=== PATIENT | male | born 1955 | race Caucasian/White ===

== ENCOUNTER 2016-10-09 20:02 | Inpatient (IN) | payer MEDICARE ==
--- NOTE | ~2016-10-09 | CO ---
Unit #: [id number] #: [id number] Patient: MAYNOR CAM [id number] [address] [place], [place] [address] [id number] I MR#: [id number] NAME: MAYNOR CAM ROOM: 341 Age: 60 Sex: M Admission Date: 10/10/2016 : 1955 Attending Physician: Carlyle Bull M.D. Primary Care Physician: No Primary Care Physician Consultation Date: 10/10/2016 CONSULTATION REPORT REASON FOR CONSULT Shortness of breath as well as chest tightness. HISTORY OF PRESENT ILLNESS The patient is a 60-year-old white male who came up from [place] approximately 12 months ago to stay with his son. However, due to some financial issues, the patient is now homeless. The patient apparently has a medical history of some chronic back pain, some sort of an eye condition as well as allergies. The patient has a questionable history of endocarditis, records are unavailable, hepatitis C and cirrhosis, as well as tobacco abuse and alcohol abuse. The patient presents to the [facility] ED on 10/09/16 at roughly 6 p.m. with complaints of chest tightness as well as a cough that have been noticeable for the last week as well as shortness of breath for the last one to two days. However, when he lays down on the bed, he has been short of breath for some time. The patient does have a cough that is nonproductive. The patient denies any kind of fevers but states that he has been told that he had a fever. He is homeless and apparently has been staying in abandoned homes and garages. The patient denies any kind of nausea, vomiting, diarrhea. He does complain of chest tightness to the middle of his chest with no radiation. The patient states that he had a cardiac cath approximately seven to eight years ago in [place] but cannot remember the name of the physician that performed it or what facility it was done at but he was reportedly told that it was normal. EKG here showed sinus rhythm with multifocal PVCs with some nonspecific T wave abnormalities. We were asked to evaluate the patient and further workup the chest pain. PAST MEDICAL HISTORY 1. Chronic back pain. 2. Some sort of an eye condition. 3. Allergies. 4. Questionable history of endocarditis. 5. Hepatitis C. 6. Cirrhosis. PAST SURGICAL HISTORY 1. Nose surgery. 2. Back surgery. 3. Umbilical hernia repair. 4. Tonsillectomy. 5. Jaw surgery. SOCIAL HISTORY The patient is a one to two 40 ounce beer drinker daily. He also smokes a Unit #: [id number] #: [id number] Patient: MAYNOR CAM half a pack per day for the last five to six months. The patient also reports some history of drinking whiskey. It is very unclear as to how much and exactly what type of alcohol the patient drinks as he is very wishy-washy on his story and he does not give clear cut answers to how much he drinks and what source of alcohol. The patient states that he does ride a bike routinely and the last time he rode his bike was last week. He rode about a mile and a half and he was not short of breath. However, now, he states if he were to get on his bike and ride, he would get short of breath and have to stop frequently for breaks. FAMILY HISTORY Dad had brain cancer. Mom-no known heart problems. No other family history of heart disease known. ALLERGIES No known allergies. HOME MEDICATION The patient states that he does take medications for his pain, for his eyes and his allergies. However, he has no medication list and is not quite sure where he last got his meds filled but has not had any for the last few months. REVIEW OF SYSTEMS See HPI. PHYSICAL EXAMINATION GENERAL APPEARANCE: This is a 60-year-old white male who is alert and oriented x3 in no apparent distress. VITAL SIGNS: Blood pressure 128/91. Temp 97.2. Pulse 102. Respirations 22. HEENT: Pupils are equal, round and reactive. Oral mucosa is moist. NECK: No JVD. No thyromegaly. No lymphadenopathy. No carotid bruits. HEART: S1, S2. No S3, S4. No clicks. No rubs. No murmurs. LUNGS: Rhonchi throughout. ABDOMEN: Soft. Bowel sounds positive, nontender, nondistended. EXTREMITIES: No swelling. NEUROLOGIC: No neuro deficits noted. DIAGNOSTIC STUDIES LABORATORY: Flu is negative for A and B. Troponin less than 0.05, less than 0.05 and 0.03. BNP 1,131. Sodium 141, potassium 4, chloride 105, COPD 26, BUN 15, creatinine 0.8, glucose 163. White count 4.6, hemoglobin 14, hematocrit 41.9, platelets 241. IMAGING: Chest x-ray showed pulmonary edema as well as possible bilateral pleural effusions. IMPRESSION 1. Acute heart failure. 2. Alcohol abuse. 3. Frequent PVCs. 4. Questionable history of endocarditis. 5. Hepatitis C. 6. Cirrhosis. PLAN We will plan to diurese the patient with IV diuretics. We will obtain 2D Unit #: [id number] #: [id number] Patient: MAYNOR CAM echo. The patient will need ischemic heart disease workup depending on echo results with either a stress test versus a cardiac cath. We will start the patient on lisinopril for blood pressure management as well as Coreg twice a day. We will check TSH, lipid profile and troponin in the morning. We will also ask the child welfare social worker to see to help the patient with medication assistance as well as senior care. The patient does state that he plans to return to [place] once he gets his monthly check and once out of the hospital. Further recommendations and workup pending results of the echo as well as other lab results. The patient has verbalized the plan and is agreeable to the plan of care. Dictated by... FRANCOIS Bright M.D. LA/bd TD: 10/11/2016 10:34 JOB #: [id number] CONSULTATION REPORT X X CONSULTATION REPORT
--- NOTE | ~2016-10-09 | CR72 ---
[facility] A Service of [facility] & [facility] RADIOLOGY TEXT RESULTS PATIENT: MAYNOR CAM LOCATION: [facility] 341-01 : [birth year] UNIT #: [id number] AGE: [address]: Carlyle Bull MD SEX: M ORDER DR: [id number] [facility] [address] [facility]. [place], [place] [address] [id number] I MR#: [id number] Acc #: [id number] NAME: MAYNOR CAM : 1955 SEX: M STUDY DATE/TIME: 10/09/2016 19:07 UNIT: [address] ROOM: [facility] STUDY DESCRIPTION: CR Chest Single View Portable Attending Physician: Carlyle Bull M.D. Ordering Physician: Alessia Justin M.D. Primary Care Physician: Primary Care Physician No MEDICAL IMAGING REPORT This report is preliminary unless electronic signature is present EXAM Portable chest HISTORY Cough, shortness of air chest pain x1 week. COMPARISON 01/03/2016 FINDINGS A portable view of the chest demonstrates cardiomegaly with diffuse haziness over both lungs with peribronchial cuffing and interstitial prominence compatible with underlying CHF with interstitial and alveolar edema. Probable small effusions. Mediastinum, bony thorax unremarkable. Again findings most concerning for developing CHF. Dictated by... Steve Kendall M.D. THIS IS AN ELECTRONICALLY VERIFIED REPORT Steve Kendall M.D. at 10/10/2016 5:04 PM Kesha TD: 10/10/2016 07:41 JOB #: [id number] MEDICAL IMAGING REPORT COPY
--- NOTE | ~2016-10-09 | EKG ---
PATIENT: MAYNOR CAM UNIT #: [id number] Ventricular Rate: 95 BPM Atrial Rate: 95 BPM P-R Interval: 164 ms QRS Duration: 104 ms Q-T Interval: 384 ms QTC Calculation(Bezet): 482 ms P [place]: 64 degrees Calculated R [place]: 37 degrees Calculated T [place]: 116 degrees Diagnosis Line: Sinus rhythm with occasional Premature ventricular Diagnosis Line: complexes Diagnosis Line: Possible Left atrial enlargement Diagnosis Line: Nonspecific T wave abnormality Diagnosis Line: Abnormal ECG Diagnosis Line: Diagnosis Line: Confirmed by BARNEY LEAL MD ([id number]) on 10/10/2016 Diagnosis Line: 7:06:35 AM INTERPRETING MD: MEL HOLCOMB
--- NOTE | ~2016-10-09 | EKG ---
PATIENT: MAYNOR CAM UNIT #: [id number] Ventricular Rate: 90 BPM Atrial Rate: 90 BPM P-R Interval: 170 ms QRS Duration: 98 ms Q-T Interval: 424 ms QTC Calculation(Bezet): 518 ms P [place]: 76 degrees Calculated R [place]: 96 degrees Calculated T [place]: 89 degrees Diagnosis Line: Normal sinus rhythm Diagnosis Line: Rightward axis Diagnosis Line: Nonspecific T wave abnormality Diagnosis Line: Prolonged QT Diagnosis Line: Abnormal ECG Diagnosis Line: When compared with ECG of 11-OCT-2016 07:04, Diagnosis Line: Premature ventricular complexes are no longer Diagnosis Line: Present Diagnosis Line: Questionable change in QRS axis Diagnosis Line: Nonspecific T wave abnormality no longer evident Diagnosis Line: in Inferior leads Diagnosis Line: Confirmed by BARNEY LEAL MD ([id number]) on 10/12/2016 Diagnosis Line: 7:38:54 PM INTERPRETING MD: MEL HOLCOMB
--- NOTE | ~2016-10-09 | HP ---
Unit #: [id number] #: [id number] Patient: MAYNOR CAM [id number] [address] [address] [id number] I MR#: [id number] NAME: MAYNOR CAM ROOM: 341 Age: 60 Sex: M Admission Date: 10/10/2016 : 1955 Attending Physician: Diana Danielle M.D. Primary Care Physician: No Primary Care Physician HISTORY AND PHYSICAL CHIEF COMPLAINT Chest pain and chest tightness. HISTORY OF PRESENT ILLNESS The patient is a 60-year-old male with a history of alcohol abuse, drinks one to two 40 ounce bottles of alcohol every night and presented to the emergency room complaining of the chest tightness and cough for one week. The patient also complains that the patient is not able to lie down flat on the bed, associated with a nonproductive cough. The patient was found to have a new onset CHF with BNP of 1131 and the chest x-ray shows bilateral effusion concerning for the CHF. The patient denies any fever, chills, nausea, vomiting. The patient continues to smoke 1/2 pack of cigarettes daily and denies any abdominal pain or palpitations. PAST MEDICAL HISTORY None. PAST SURGICAL HISTORY Left eye surgery. HOME MEDICATIONS Oxycodone. ALLERGIES Allergic to Toradol. SOCIAL HISTORY He smokes a half a pack of cigarettes daily and drinks one to two 40 ounce bottles or alcohol every night and denies any illicit drug abuse. FAMILY HISTORY Positive for coronary artery disease. REVIEW OF SYMPTOMS Fourteen point review of symptoms performed and only pertinent positives are as described above. The remaining are negative. PHYSICAL EXAMINATION GENERAL: The patient is lying on the bed, not in acute distress. VITALS: Temperature 98.3, pulse 99, respiratory rate 16, blood pressure 126/95, satting 96% at room air. HEENT: Head atraumatic, normocephalic. Pupils equal, round and reactive to light and accommodation. Extraocular movements are intact. NECK: Supple. Unit #: [id number] #: [id number] Patient: MAYNOR CAM LUNGS: Decreased air entry at the bases. Bilateral upper rales. HEART: Regular rate and rhythm. Tachycardic. ABDOMEN: Soft. Positive bowel sounds. EXTREMITIES: No cyanosis and no clubbing. NEUROLOGIC: Alert, awake and oriented. No gross focal motor deficit. DIAGNOSTIC STUDIES LABORATORY DATA: WBC 8.2, hemoglobin 14, hematocrit 41.8, platelet 248, neutrophils 84.2. Troponin less than 0.05. INR is 1.1. Glucose 115, BUN 15, creatinine 0.7, sodium 136, potassium 3.5, bicarb 24, calcium 8, total bili 0.6, AST 64, ALT 87, alk phos 97, BNP is 1131, alcohol level is less than 5. CARDIOLOGY STUDIES: EKG shows sinus rhythm with questionable PVC, possible left atrial enlargement, and nonspecific T wave abnormalities in the lateral leads, mainly in V3, V4, V5 and V6. ASSESSMENT 1. New onset CHF probably from alcohol. 2. Alcohol abuse. 3. History of hep C. PLAN Plan to admit the patient to observation with telemetry. Continue with the diuretic with Lasix 40 mg IV daily. Check the echocardiogram and rule out ischemia with serial troponins. Cardiology consult for the CHF management and repeat the labs again in the morning and further recommendations will follow. Dictated by Roberto Lobato TD: 10/10/2016 06:04 JOB #: [id number] HISTORY AND PHYSICAL X X HISTORY AND PHYSICAL
--- NOTE | ~2016-10-09 | DS ---
Unit #: [id number] #: [id number] Patient: MAYNOR CAM [id number] [facility] [address] [facility]. [place], [place] [address] [id number] I MR#: [id number] NAME: MAYNOR CAM ROOM: 341 Age: 60 Sex: M Admission Date: 10/10/2016 : 1955 Discharge Date: 10/13/2016 Attending Physician: Carlyle Bull M.D. Primary Care Physician: No Primary Care Physician DISCHARGE SUMMARY DISCHARGE DIAGNOSES 1. Severe alcoholic cardiomyopathy: Heart cath performed reveals ejection fraction of 15%. 2. Acute systolic heart failure: Will be discharged on Lasix. Again, noted ejection fraction is 15%. 3. Alcoholic cirrhosis, stable at this time. 4. Polysubstance abuse: Specifically, has a longstanding history with intravenous meth. Stressed cessation. 5. 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 6. Glaucoma. AGRICULTURAL SYSTEMS SPECIALIST [facility] - Dr. De La Rosa and Dr. Douglas. PROCEDURE The patient had left heart cath done by Dr. Douglas on 10/12/16. The patient had 1) left ventricular size is markedly enlarged with severe global hypokinesis. The left ventricular ejection fraction is about 10% to 15%. 2) Coronary artery reveals no hemodynamically significant fixed stenosis. 3) Left ventricular end-diastolic pressure was 21 mmHg. IMAGING Imaging consists of a chest x-ray on 10/09/16. Findings - a portable view of the chest demonstrates cardiomegaly with diffuse haziness over both lungs with peribronchial cuffing and interstitial prominence compatible with underlying CHF with interstitial and alveolar edema. Probable small effusions. Mediastinum, bony thorax unremarkable. Again findings most concerning for developing CHF. LABORATORY On the day of discharge, the patient's labs: BMP were all unremarkable. The patient's liver function - AST was 90, ALT was 109. Patient's fasting lipid panel reveals total cholesterol is 122, triglyceride 47, LDL 77, HDL 36. CBC were all unremarkable. Noted hemoglobin of 15.5, hematocrit 46.6. HOSPITAL COURSE The patient is a pleasant 60-year-old male with a past medical history of alcoholism. Drinks about one to two 40 ounce bottles of alcohol every night. Presented to [facility] due to chest tightness and cough for about one week. The patient complains that he is Unit #: [id number] #: [id number] Patient: MAYNOR CAM not able to lie down flat on the bed associated with nonproductive cough. The patient was found to have new onset CHF with BNP of 1131. Chest x-ray significant for bilateral pleural effusion concerning for CHF. The patient had denied any fevers, chills, nausea, vomiting. The patient continues to smoke a half pack of cigarettes daily and denies any abdominal pain or palpitations. Later on, patient admits that he does have difficulty with battling IV substance abuse, specifically methamphetamine. The patient was admitted and diuresed with IV Lasix. An echocardiogram was done and cardiology was consulted with the patient's transthoracic 2D echocardiogram revealing severe systolic reduction with LVEF of 10% to 15%. With his known longstanding history of polysubstance abuse, we could not rule out the patient had no coronary stenosis. Therefore, left heart cath was scheduled and details were noted above. The patient does have markedly large and severe global hypokinesis of the left ventricle with ejection fraction of 10% to 15% but coronary arteries reveal no hemodynamically significant stenosis. At this time, patient was encouraged to stop smoking, stop using alcohol, stop any IV drug usage as well. The patient will be started on lisinopril as well as Coreg as a beta argenis and Lasix as well as Aldactone. Both cardiology and myself have stress to patient to continue with a fluid and salt restriction diet with a fluid restriction of 1800 mL daily. DISCHARGE CONDITION Stable. The patient will be returning back home to [place] where both cardiology and myself have stressed that patient will need to establish care with a machine coil assembler there. All reports, procedures and notes can be requested from his machine coil assembler and primary care physician there in [place]. The patient voiced understanding. I actually have told this to patient and his daughter and his daughter's girlfriend. DISCHARGE DIET Heart healthy diet with two grams of sodium daily as well as 1800 mL fluid restriction. DISCHARGE ACTIVITY Refrain from alcohol, IV and tobacco usage but to ambulate every day as was prior to hospitalization as tolerated. DISCHARGE MEDICATIONS Include: 1. Coreg 6.25 mg orally twice daily. 2. Furosemide 40 mg orally daily with an additional 40 mg dose in the afternoon for increased shortness of breath and/or swelling. 3. Lisinopril 10 mg orally daily. 4. Multivitamin gwuo-ano-knytitl, one tablet orally daily. 5. Aspirin 81 mg orally daily. 6. Spironolactone 12.5 mg orally daily. 7. Folic acid 1 mg orally daily. 8. Thiamine 100 mg orally daily. 9. The patient had requested and I have given a prescription for Combigan eyedrops that he had used previously for Glaucoma, one drop into affected eye twice daily. Dictated by... Mercedes Sexton PA-C for Carlyle Bull M.D. Unit #: [id number] #: [id number] Patient: SUZETTE CAMSAMUEL GUERRA/lolita TD: 10/14/2016 09:13 JOB #: [id number] DISCHARGE SUMMARY X X DISCHARGE SUMMARY
--- NOTE | ~2016-10-09 | EKG ---
PATIENT: MAYNOR CAM UNIT #: [id number] Ventricular Rate: 88 BPM Atrial Rate: 88 BPM P-R Interval: 164 ms QRS Duration: 104 ms Q-T Interval: 396 ms QTC Calculation(Bezet): 479 ms P [place]: 75 degrees Calculated R [place]: 35 degrees Calculated T [place]: 118 degrees Diagnosis Line: Sinus rhythm with occasional Premature ventricular Diagnosis Line: complexes Diagnosis Line: Possible Left atrial enlargement Diagnosis Line: Nonspecific T wave abnormality Diagnosis Line: Prolonged QT Diagnosis Line: Abnormal ECG Diagnosis Line: When compared with ECG of 09-OCT-2016 18:23, Diagnosis Line: No significant change was found Diagnosis Line: Confirmed by TARSHA ROTHMAN MD ([id number]) on Diagnosis Line: 10/11/2016 12:06:17 PM INTERPRETING MD: LINDSAY
[2016-10-09 22:11] LABS: INFLUENZA A NEG (NEG); INFLUENZA B NEG (NEG)
[2016-10-09 23:00] LABS: POC - CKMB 4.7 ng/mL (0.0-7.9); POC - TROPONIN <0.05 ng/mL (<=0.05)
[2016-10-09 23:01] LABS: BASOPHIL% 0.6 % (0-2.5); EOSINOPHIL% 0.5 % (0.0-7.0); HEMATOCRIT 41.8 % (38.0-50.0); LYMPHOCYTE# 0.9 X10e3 (1.0-3.5); LYMPHOCYTE% 11.5 % (17.0-45.0); MEAN CELL VOLUME 95.4 FL (83-96); MEAN CORPUSCULAR HEMOGLOBIN 31.9 PG (28-34); MEAN CORPUSCULAR HGB CONC 33.4 g/dL (30-36); MEAN PLATELET VOLUME 9.1 FL (6.5-11.5); MONOCYTE# 0.3 X10e3 (0-1.0); MONOCYTE% 3.2 % (3.0-12.0); NEUTROPHIL# 6.9 X10e3 (1.5-7.1); NEUTROPHIL% 84.2 % (40-75); PLATELET COUNT 248 X10e3 (140-420); RED BLOOD COUNT 4.39 X10e (3.90-5.60); RED CELL DISTRIBUTION WIDTH 12.8 % (11.0-15.5); WHITE BLOOD COUNT 8.2 X10e3 (4.0-10.5)
[2016-10-09 23:04] LABS: DIFF IND NO
[2016-10-09 23:15] LABS: INR 1.1; PARTIAL THROMBOPLASTIN TIME 25.9 SECONDS (23.5-31.3); PROTHROMBIN TIME (PATIENT) 11.2 SECONDS (9.6-11.5)
[2016-10-09 23:23] LABS: ALBUMIN SERUM 3.2 g/dL (3.5-5.0); ALKALINE PHOSPHATASE 97 U/L (32-92); ALT (SGPT) 87 U/L (10-40); AST (SGOT) 64 U/L (10-42); BILIRUBIN, DIRECT 0.1 mg/dL (0.0-0.2); BILIRUBIN,INDIRECT 0.5 mg/dL (0.0-0.9); BILIRUBIN,TOTAL 0.6 mg/dL (0.2-2.0); BLOOD UREA NITROGEN 15 mg/dL (9-23); BUN/CREATININE RATIO 21.42; CARBON DIOXIDE 24 mmol/L (22-31); CHLORIDE 104 mmol/L (100-111); CREATININE SERUM 0.7 mg/dL (0.6-1.4); GLOM FILT RATE Estimated ABOVE60 mL/min (>60); GLUCOSE FASTING 115 mg/dL (70-110); MAGNESIUM 1.7 mg/dL (1.6-3.0); POTASSIUM 3.5 mmol/L (3.5-5.1); PROTEIN TOTAL SERUM 6.7 g/dL (6.0-8.3); SODIUM 136 mmol/L (135-145)
[2016-10-09 23:24] LABS: ALCOHOL BLOOD <5 mg/dL ([, 0])
[2016-10-10 00:50] LABS: POC - CKMB 4.5 ng/mL (0.0-7.9); POC - TROPONIN <0.05 ng/mL (<=0.05)
[2016-10-10] MEDS ORDERED: NO MEDICATIONS (06:14)
[2016-10-10 06:23] LABS: BASOPHIL% 0.9 % (0-2.5); HEMATOCRIT 41.9 % (38.0-50.0); LYMPHOCYTE# 0.7 X10e3 (1.0-3.5); LYMPHOCYTE% 15.6 % (17.0-45.0); MEAN CELL VOLUME 95.3 FL (83-96); MEAN CORPUSCULAR HEMOGLOBIN 31.9 PG (28-34); MEAN CORPUSCULAR HGB CONC 33.5 g/dL (30-36); MEAN PLATELET VOLUME 10.2 FL (6.5-11.5); MONOCYTE# 0.3 X10e3 (0-1.0); MONOCYTE% 5.7 % (3.0-12.0); NEUTROPHIL# 3.6 X10e3 (1.5-7.1); NEUTROPHIL% 77.8 % (40-75); PLATELET COUNT 241 X10e3 (140-420); RED CELL DISTRIBUTION WIDTH 12.8 % (11.0-15.5); WHITE BLOOD COUNT 4.6 X10e3 (4.0-10.5)
[2016-10-10 06:37] LABS: DIFF IND NO
[2016-10-10 07:31] LABS: BLOOD UREA NITROGEN 15 mg/dL (9-23); BUN/CREATININE RATIO 18.75; CALCIUM SERUM 8.8 mg/dL (8.4-10.2); CARBON DIOXIDE 26 mmol/L (22-31); CHLORIDE 105 mmol/L (100-111); CREATININE SERUM 0.8 mg/dL (0.6-1.4); GLOM FILT RATE Estimated ABOVE60 mL/min (>60); GLUCOSE FASTING 163 mg/dL (70-110); SODIUM 141 mmol/L (135-145)
[2016-10-10 07:36] LABS: %MB 5.6 % (0.0-4.0); MB 5.4 ng/ml
[2016-10-10 10:32] LABS: CHOLESTEROL 122 mg/dL (0-200); HDL CHOLESTEROL 36 mg/dL (29-75); LDL CHOLESTEROL 77 mg/dL ([, -130]); LDL/HDL RATIO 2 RATIO (0-4); TRIGLYCERIDES 47 mg/dL (10-160)
[2016-10-10 10:53] LABS: %MB 5.7 % (0.0-4.0); MB 4.1 ng/ml
[2016-10-10 18:21] LABS: %MB 5.4 % (0.0-4.0); MB 3.7 ng/ml
[2016-10-11 06:12] LABS: HEMATOCRIT 43.3 % (38.0-50.0); HEMOGLOBIN 14.7 gm/dL (13.0-16.0); MEAN CELL VOLUME 94.9 FL (83-96); MEAN CORPUSCULAR HEMOGLOBIN 32.1 PG (28-34); MEAN CORPUSCULAR HGB CONC 33.9 g/dL (30-36); MEAN PLATELET VOLUME 8.7 FL (6.5-11.5); RED BLOOD COUNT 4.56 X10e (3.90-5.60); RED CELL DISTRIBUTION WIDTH 12.7 % (11.0-15.5); WHITE BLOOD COUNT 6.4 X10e3 (4.0-10.5)
[2016-10-11 06:58] LABS: BLOOD UREA NITROGEN 22 mg/dL (9-23); BUN/CREATININE RATIO 31.42; CALCIUM SERUM 8.5 mg/dL (8.4-10.2); CARBON DIOXIDE 29 mmol/L (22-31); CHLORIDE 102 mmol/L (100-111); CREATININE SERUM 0.7 mg/dL (0.6-1.4); GLOM FILT RATE Estimated ABOVE60 mL/min (>60); GLUCOSE FASTING 93 mg/dL (70-110); POTASSIUM 3.3 mmol/L (3.5-5.1); SODIUM 139 mmol/L (135-145)
[2016-10-12 05:21] LABS: HEMATOCRIT 46.6 % (38.0-50.0); HEMOGLOBIN 15.5 gm/dL (13.0-16.0); MEAN CELL VOLUME 95.5 FL (83-96); MEAN CORPUSCULAR HEMOGLOBIN 31.8 PG (28-34); MEAN CORPUSCULAR HGB CONC 33.3 g/dL (30-36); MEAN PLATELET VOLUME 9.9 FL (6.5-11.5); RED BLOOD COUNT 4.88 X10e (3.90-5.60); RED CELL DISTRIBUTION WIDTH 12.6 % (11.0-15.5); WHITE BLOOD COUNT 6.8 X10e3 (4.0-10.5)
[2016-10-12 05:29] LABS: INR 1.1; PARTIAL THROMBOPLASTIN TIME 27.1 SECONDS (23.5-31.3); PROTHROMBIN TIME (PATIENT) 11.3 SECONDS (9.6-11.5)
[2016-10-12 06:34] LABS: ALKALINE PHOSPHATASE 81 U/L (32-92); ALT (SGPT) 109 U/L (10-40); AST (SGOT) 90 U/L (10-42); BILIRUBIN, DIRECT 0.1 mg/dL (0.0-0.2); BILIRUBIN,INDIRECT 0.4 mg/dL (0.0-0.9); BILIRUBIN,TOTAL 0.5 mg/dL (0.2-2.0); BLOOD UREA NITROGEN 19 mg/dL (9-23); CALCIUM SERUM 8.6 mg/dL (8.4-10.2); CARBON DIOXIDE 27 mmol/L (22-31); CHLORIDE 101 mmol/L (100-111); GLOM FILT RATE Estimated ABOVE60 mL/min (>60); GLUCOSE FASTING 90 mg/dL (70-110); POTASSIUM 3.7 mmol/L (3.5-5.1); PROTEIN TOTAL SERUM 6.6 g/dL (6.0-8.3); SODIUM 136 mmol/L (135-145)
[2016-10-12] MEDS ORDERED: OXYCONTIN PO (12:50)
[2016-10-13] MEDS ORDERED: LISINOPRIL10 MG (10:13)
[2016-10-13] MEDS ORDERED: COREG6.25 MG PO (10:14)
[2016-10-13] MEDS ORDERED: LASIX (10:16)
[2016-10-13] MEDS ORDERED: ALDACTONE (10:16)
[2016-10-13] MEDS ORDERED: ASPIRIN81 MG PO (10:18)
[2016-10-13] MEDS ORDERED: MULTIVITAMINS1 EAC2 PO (10:18)
[2016-10-13] MEDS ORDERED: COMBIGAN EYE DRO5 ML (11:24)
[2016-10-13] MEDS ORDERED: FOLIC ACID1 MG PO (11:25)
[2016-10-13] MEDS ORDERED: THIAMINE HCL100 MG PO (11:26)
[2016-10-15 07:54] LABS: HEP B SURFACE AG Nonreactive (Nonreactive); HEPATITIS A ANTIBODY Borderline (Nonreactive); HEPATITIS B SURFACE ANTIBODY 42 mIU/mL (>=10)
== END 2016-10-13 12:04 | disposition home or self-care (01) | DRG 287 ==
LOC: CED 20:02 → CEDOF 10-10 00:20 → C3A PCU 10-10 00:34
PROVIDERS: Internal Medicine; Internal Medicine Cardiovascular Disease; Student in an Organized Health Care Education/Training Program
PROC: B246YZZ Ultrasonography of Right and Left Heart using Other Contrast (ICD-10-PCS; principal; 2016-10-10)
PROC: 4A023N7 Measurement of Cardiac Sampling and Pressure, Left Heart, Percutaneous Approach (ICD-10-PCS; 2016-10-12)
PROC: B211YZZ Fluoroscopy of Multiple Coronary Arteries using Other Contrast (ICD-10-PCS; 2016-10-12)
PROC: B215YZZ Fluoroscopy of Left Heart using Other Contrast (ICD-10-PCS; 2016-10-12)
DX: I50.21 Acute systolic (congestive) heart failure (principal); I42.0 Dilated cardiomyopathy; I27.2 Other secondary pulmonary hypertension; I42.6 Alcoholic cardiomyopathy; F10.20 Alcohol dependence, uncomplicated; Z59.0 Homelessness; F17.210 Nicotine dependence, cigarettes, uncomplicated; I49.3 Ventricular premature depolarization; B19.20 Unspecified viral hepatitis C without hepatic coma; K70.30 Alcoholic cirrhosis of liver without ascites; F15.10 Other stimulant abuse, uncomplicated; G62.9 Polyneuropathy, unspecified; H40.9 Unspecified glaucoma; Z71.51 Drug abuse counseling and surveillance of drug abuser; Z71.6 Tobacco abuse counseling
CPT/HCPCS: 36415; 71010; 80048; 80061; 80076; 82550; 82553; 83735; 83880; 84443; 84484; 85025; 85027; 85610; 85730; 86706; 86708; 87340; 87804; 93005; 93306; 94640; 94760; 96374; 99285; C1769; C1887; C1894; G0480; J1644; J1650; J1940; J2250; J2270; J3010